=== PATIENT | male | born 1955 | race Caucasian/White ===

== ENCOUNTER 2024-05-05 09:29 | Outpatient (CLI) | payer OTHER, SELFPAY ==
--- OUTSIDE RECORDS SUMMARY | 2024-05-06 08:32 | XMS_ITS | Referral Summary ---
Author Organization [facility] Address [address] [place] [address]. [place] [address] Care Team Providers Care Billet Sawyer Name Role Phone Berenice Olea Primary Care Provider Social History Tobacco Use Types Packs/Day Years Used Date Smoking Tobacco: Never Assessed Adolescent Education Answer Date Record ed Getting School Help Needed Not on file 07/03 Sex and Gender Information Value Date Recorded Sex Assigned at Not on file Gender Identity Not on file Sexual Orientation Not on file Plan of Treatment Not on file Procedures Procedure Name Priority Date/Time Associated Diagnosis Comments COLONOSCOPY Routine 04/08/2008 8:50 AM CDT from Last 3 Months or Most Recently Relevant to Health Maintenance Results * COLONOSCOPY (04/08/2008 8:50 AM CDT) COLONOSCOPY Endoscopy Patient Name: Patrice Johnson ?Gender: M ? Procedure Date: 04/08/2008 8:50 AM ? Date of : 1955 ?Age: 53 ? Admit Type: Outpatient ? Attending MD: Aristeo Feng MD ? Procedure: ? Colonoscopy Indications: ? Average risk screening for malignant neoplasm in the ? colon Providers: ? Aristeo Feng MD Referring MD: ?Ramon Cook MD Medicines: ? Fentanyl 100 micrograms IV, Midazolam 2 mg IV, Atropine ? 0.6 mg IV Complications: ? No immediate complications Procedure: ? - Prior to the procedure, a History and Physical was ? performed, and patient medication allergies were ? reviewed. The patient is competent. The risks and ? benefits of the procedure and the sedation options and ? risks were discussed with the patient. All questions ? were answered and informed consent was obtained. Patient ? identification and proposed procedure were verified by ? the physician in the procedure room. Mental Status ? Examination: alert and oriented. Airway Examination: ? normal oropharyngeal airway and neck mobility. ? Respiratory Examination: clear to auscultation. CV ? Examination: normal. ASA Grade Assessment: I - A normal, ? healthy patient. After reviewing the risks and benefits, ? the patient was deemed in satisfactory condition to ? undergo the procedure. The anesthesia plan was to use ? moderate sedation / analgesia (conscious sedation). ? Immediately prior to administration of medications, the ? patient was re-assessed for adequacy to receive ? sedatives. The heart rate, respiratory rate, oxygen ? saturations, blood pressure, adequacy of pulmonary ? ventilation, and response to care were monitored ? throughout the procedure. The physical status of the ? patient was re-assessed after the procedure. ? After obtaining informed consent, the colonoscope was ? passed under direct vision. Throughout the procedure, ? the patient's blood pressure, pulse, and oxygen ? saturations were monitored continuously. The [id number]-Q180AL ? #[id number] was introduced through the anus and advanced to ? the cecum, identified by appendiceal orifice & IC valve. ? The colonoscopy was performed without difficulty. The ? patient tolerated the procedure well. The quality of the ? prep was good. ? Findings: ? The digital rectal exam was normal. The rectum, sigmoid colon, ? descending colon, splenic flexure, transverse colon, hepatic flexure, ? ascending colon, cecum and ileocecal valve appeared normal. The ? retroflexed view of the anal verge was normal and showed no anal or ? rectal abnormalities. ? Impression: ?- The rectum, sigmoid colon, descending colon, splenic ? flexure, transverse colon, hepatic flexure, ascending ? colon, cecum and ileocecal valve are normal. Recommendation: ?- Discharge patient to home (ambulatory). ? - Collect Hemoccults on three spontaneously passed ? stools annually. ? - Flexible Sigmoidoscopy in 3 years. ? - Return to primary care physician PRN. ? Erin Feng M.D Aristeo Feng MD Signed Date: 04/08/2008 9:38 AM Number of Addenda: 0 I was physically present for the entire viewing portion of the exam. Note initiated on 04/08/2008 8:49 AM RADIOLOGY RESULTS COLONOSCOPY RADIOLOG Y RESULTS 04/08/2008 8:50 AM CDT Ramon Cook MD PROCEDURES RADIOLOGY RESULTS from Last 3 Months or Most Recently Relevant to Health Maintenance Care Teams Billet Sawyer Relationship Specialty Start Date End Date Berenice Olea [facility] [address] [place] [address] PCP - General Nurse Practitioner 12/15/16
--- OUTSIDE RECORDS SUMMARY | 2024-05-06 08:32 | XMS_ITS | Encounter Summary ---
Author Organization [facility] Address [address], [place] [address] Care Team Providers Care Leacher Name Role Phone Michael Galarza PA-C Primary Care Provider [phone] Encounter Details Date Type Department Care Team (Late st Contact Info) Description 04/16/2019 Consent for Procedure/Treatme nt [facility] INFORMED CONSENT RECORD Social History Tobacco Use Types Packs/Day Years Used Date Smoking Tobacco: Never Smokeless Tobacco: Never Alcohol Use Standard Drinks/Week Comments Yes 0 (1 standard drink = 0.6 oz pur e alcohol) 4-5 glasses of wine/day Sex and Gender Information Value Date Recorded Sex Assigned at Not on file Gender Identity Not on file Sexual Orientation Not on file documented as of this encounter Plan of Treatment Not on file documented as of this encounter Visit Diagnoses Not on filedocumented in this encounter Care Teams Leacher Relationship Specialty Start Date End Date Michael Galarza PA-C [address] [place] [address] PCP - General Physician Forensic Nurse 03/10/21 documented as of this encounter
--- OUTSIDE RECORDS SUMMARY | 2024-05-06 08:32 | XMS_ITS | Continuity of Care Document ---
Author Organization [facility] Address [address] [place] [address] Care Team Providers Care Corn Lab Technician Name Role Phone BONI KESSLER Primary Care Provider [facility] Primary Care Provider BONI KESSLER Referring Provider Assessment No assessment recorded. Plan of Treatment Reminders Order Date Submit Date Provider Last Modified By Organization Details Last Modified Time Details Appointments None recorded . Lab PSA, total, serum or plasma 024 04/17/[address] [facility], [address], [place], [address], 16:14:00 Referral None recorded . Procedures None recorded . Surgeries None recorded . Imaging None recorded . Medication Orders None recorded . Patient TargetsNo targets recorded. Patient InstructionsNo instructions recorded. Reason for Referral None Reported. Problems Name Status Onset Date Resolution Date Notes Provider Name and Address Organization Details Recorded Time Prostate specific antigen above reference range Active 09/01/20 20 Juanjose Edwards MD [address] [place] [address],[address], [address], [facility] 09/01/2020 18:10:19 Primary erectile dysfunction Active 03/10/20 21 Juanjose Edwards MD [address] [place] [address],[address], [address], [facility] 03/10/2021 11:59:25 Benign prostatic hyperplasia with outflow obstruction Active 05/25/20 22 Juanjose Edwards MD [address] [place] [address],[address], [address], [facility] 05/25/2022 16:07:56 Urgent desire to urinate Active 05/25/20 22 Juanjose Edwards MD [address], [place], [address], [facility] 05/25/2022 16:07:57 Problem Notes None recorded. Procedures Surgical History Date Name Laterality Status Provider Name and Address Organization Details Recorded Time 04/24/20 24 Bladder Scan completed Jenifer Latif null, [facility] 04/24/2024 16:27:55 04/17/20 24 Blood Draw/ICE SCRAPER/PSA RESULTS completed Tamra Chacon null, [facility] 04/17/2024 15:02:35 04/26/20 23 Bladder Scan completed Jenifer Latif null, [facility] 04/26/2023 15:24:43 04/19/20 23 Blood Draw/ICE SCRAPER/PSA RESULTS completed Guille Alexandre null, [facility] 04/19/2023 10:35:26 10/09/19 23 Prostate Biopsy Procedure completed Raghav Mejía MD [address], [place], [address], [facility] 10/05/2022 18:17:42 10/09/19 23 URONAV completed Raghav Mejía MD [address], [place], [address], [facility] 10/05/2022 18:17:45 10/09/19 23 Rocephin/Ceftri axone completed Tamra Chacon null, [facility] 10/09/2022 14:22:00 05/25/20 22 Bladder Scan completed Alla Pimentel null, [facility] 05/25/2022 15:55:06 05/18/20 22 Blood Draw/ICE SCRAPER/PSA RESULTS completed Karina Campoverde null, [facility] 05/18/2022 16:39:48 03/10/20 21 Bladder Scan completed Alla Pimentel null, [facility] 03/10/2021 11:49:38 09/02/20 20 Prostate Biopsy Procedure completed Juanjose Edwards MD [address], [place], [address], [facility] 09/02/2020 14:22:34 09/02/20 20 Gentamicin Injection completed Alla Pimentel donna, [facility] 09/02/2020 13:44:12 05/16/20 20 Diagnostic colonoscopy completed Not Available Health Note 05/25/2022 00:20:52 05/08/20 20 Colonoscopy thru stoma spx completed Not Available Health Note 05/25/2022 00:20:52 Hernia repair w/mesh completed Not Available Health Note 05/25/2022 00:20:52 Imaging Results None recorded. Procedure Notes None recorded. Medical Equipment None Reported. Allergies Allergen ID Allergen Name Allergen Category Reaction Reaction Severity Criticality Documentation Date Start Date Code Code System Note Provider Name and Address Organization Details Recorded Time 950194 latex environme nt,medica tion itching Not available Not available 04/24/2023 78670 91 RxNorm Not Available Health Note 14:46:06 Medications Name Sig Start Date Stop Date Status Note LastModified by Organization Details LastModified Time valacyclo vir 1 gram tablet TK 1 T PO D 05/25 completed HN: Patient reports no longer taking Not Available Not Available Not Available triamcino lone acetonide 0.1 % topical cream APPLY TOPICALL Y TWICE A DAY NEEDED 05/25 completed HN: Patient reports no longer taking Not Available Not Available Not Available ceftriaxo ne 1 gram solution for injection Take 1 g by injectio n route. 04/24 completed HN: Patient reports no longer taking HN: Patient reports no longer taking Not Available Not Available Not Available triamcino lone acetonide 0.1 % topical ointment APPLY TOPICALL Y TO BODY RASH TWICE DAILY ON TOP OF VANICREA M MOISTURI ZER NEEDED active Not Available Not Available No t Available lisinopri l 20 mg-hydroc hlorothia zide 25 mg tablet TAKE 1 TABLET BY MOUTH DAILY active Not Available Not Available No t Available clobetaso l 0.05 % topical ointment APPLY TO RASH ON AFFECTED AREAS ON TRUNK TWICE DAILY ON TOP OF VANICREA M FOR MORE SEVERE BODY RASH 04/24 completed HN: Patient reports no longer taking Not Available Not Available Not Available levofloxa eleazar 500 mg tablet Take 1 tablet by mouth on the morning of the procedur e. 04/24 completed HN: Patient reports no longer taking Not Available Not Available Not Available gentamici n 40 mg/mL injection solution 160mg prior to procedur e 2019 active Not Available Not Available Not Avai lable hydrocort isone 2.5 % topical ointment APPLY 1-2 TIMES DAILY NEEDED FOR FACIAL RASH/ITC SIRI ON TOP OF VANICREA M NEEDED active Not Available Not Available No t Available Adult Low Dose Aspirin 81 mg tablet,de layed release Take 1 tablet every day by oral route. active Not Available Not Available No t Available sildenafi l (pulmonar y hypertens ion) 20 mg tablet TAKE 1 TO 5 TABLETS BY MOUTH 1 HOUR BEFORE SEXUAL ACTIVITY DIRECTED NEEDED active Not Available Not Available No t Available Vitamin D3 active Not Available Not Available Not Available Vitals None Recorded Social History Question Answer Notes LastModified by Organizat ion Details LastModified Time Tobacco Smoking Status Never Smoker Not Available Health Note 04/24/2023 14:46:07 What Is Your Level Of Alcohol Consumption? Moderate [email or web address] Information not available 04/24/2023 What Is Your Level Of Caffeine Consumption? Moderate [email or web address] Information not available 04/24/2023 How Much Tobacco Do You Chew? None [email or web address] Information not available 04/24/2023 Do You Or Have You Ever Used E-cigarettes Or Vape? Never Used Electronic Cigarettes [email or web address] Information not available 04/24/2023 Recreational Drug Use No [email or web address] Information not available 03/08/2021 What Was The Date Of Your Most Recent Tobacco Screening? 04/24/2024 [email or web address] Information not available 04/24/2024 Have You Ever Been Counseled For Unhealthy Alcohol Use? No Information not available 04/24/2024 What Is Your Relationship Status? [email or web address] Information not available 04/24/2023 Are You Sexually Active? Yes [email or web address] Information not available 04/24/2023 Do You Or Have You Ever Used Smokeless Tobacco? Never Used Smokeless Tobacco [email or web address] Information not available 04/24/2023 Do You Use Any Illicit Or Recreational Drugs? No [email or web address] Information not available 04/24/2023 How Many Days In The Past Year Have You Consumed 5 Or More Drinks? 3 [email or web address] Information no t available 04/24/2023 Sex: Unknown Functional Status None recorded. Mental Status None recorded. Family History Relationship Description Onset Age of this Age Resolved Age Notes Unspecified Relation Family history of malignant neoplasm Medical History Condition Response High Blood Pressure N Kidney Stones N Depression N Lung Disease N GERD/Acid Reflux N Sexually Transmitted Infection N Cancer N High Cholesterol N Diabetes N Bleeding Disorder N Heart Disease N Immunizations Vaccine Type Date Status Provider Name and Address Organization Details Recorded Time Influenza, split virus, quadrivalent, preservative [facility]07[facility] 15:47:52 influenza, unspecified formulation 06[facility]26/2021 [facility] 15:47:52 pneumococcal, unspecified formulation 05/18/2020 [facility] 15:47:52 SARS-COV-2 (COVID-19) vaccine, UNSPECIFIED 03/02/2022 [facility] 15:47:52 Influenza, high-dose, trivalent, PF 08/17/2014 [facility] 15:47:52 Tdap 11/16/2015 [facility] 15:47:52 COVID-19, mRNA, LNP-S, PF, 100 mcg/0.5mL dose or 50 mcg/0.25mL dose 10/13/2020 [facility] 15:47:52 Influenza, split virus, quadrivalent, PF 08/10/2015 [facility] 15:47:52 Influenza, split virus, quadrivalent, PF 09/27/2017 [facility] 15:47:52 pneumococcal polysaccharide PPV23 04/30/2020 [facility] 15:47:52 COVID-19, mRNA, LNP-S, PF, 100 mcg/0.5mL dose or 50 mcg/0.25mL dose 03/02/2022 completed Alla Pimentel null, [facility] 05/25/2022 15:47:52 zoster recombinant 01/24/2019 completed Alla Pimentel null, [facility] 05/25/2022 15:47:52 Influenza, split virus, quadrivalent, preservative 07/14/2019 completed Alla Pimentel null, [facility] 05/25/2022 15:47:52 COVID-19, mRNA, LNP-S, PF, 100 mcg/0.5mL dose or 50 mcg/0.25mL dose 09/15/2020 completed Alla Pimentel null, [facility] 05/25/2022 15:47:52 Influenza, split virus, quadrivalent, PF 09/19/2018 completed Alla thompson, [facility] 05/25/2022 15:47:52 Pneumococcal conjugate PCV 13 08/10/2015 completed Alla Pimentel null, [facility] 05/25/2022 15:47:52 zoster recombinant 10/14/2019 completed Alla thompson, [facility] 05/25/2022 15:47:52 Influenza, split virus, quadrivalent, preservative 06/09/2020 [facility] 15:47:52 Influenza, split virus, trivalent, preservative 09/26/2012 completed Alla Pimentel null, [facility] 05/25/2022 15:47:52 Tdap 02/27/2007 completed Alla Pimentel null, [facility] 05/25/2022 15:47:52 Novel [id number], all formulations 08/31/2009 completed Alla Pimentel null, [facility] 05/25/2022 15:47:52 Influenza, split virus, trivalent, PF 08/31/2014 completed Alla Pimentel null, [facility] 05/25/2022 15:47:52 Influenza, split virus, quadrivalent, PF 06/30/2021 completed Alla thompson, [facility] 05/25/2022 15:47:52 COVID-19, mRNA, LNP-S, PF, 100 mcg/0.5mL dose or 50 mcg/0.25mL dose 08/31/2021 completed Alla Pimentel null, [facility] 05/25/2022 15:47:52 pneumococcal, unspecified formulation 05/06/2020 completed Alla Pimentel null, [facility] 05/25/2022 15:47:52 influenza, unspecified formulation 06/01/2020 completed Alla Pimentel null, [facility] 05/25/2022 15:47:52 SARS-COV-2 (COVID-19) vaccine, UNSPECIFIED 10/13/2020 completed Alla thompson, [facility] 05/25/2022 15:47:52 SARS-COV-2 (COVID-19) vaccine, UNSPECIFIED 08/17/2022 completed Not Available Health Note 04/24/2023 14:46:14 pneumococcal, unspecified formulation 05/18/2021 completed Not Available Health Note 04/24/2023 14:46:14 influenza, unspecified formulation 05/18/2022 completed Not Available Health Note 04/24/2023 14:46:14 Past Encounters Encounter ID Performer Location Encounter Start Date Encounter Closed Date Diagnosis/Indication Diagnosis SNOMED-CT Code [id number] Tamra Chacon [address] [address] 04/17/2024 15:00:33 04/17/2024 15:03:18 Prostate specific antigen above reference range [id number] Health Concerns Section Related Observation LastModified by Organization Detai ls LastModified Time None Recorded Concern Status LastModified by Organization Details LastModified Time None Recorded Payers Encounter Date Sequence Insurance Name Policy Number Policy Bryan Covered Member ID Bryan Member ID Guarantor Name 04/17/2024 1 [employer] - OPEN ACCESS CHOICE (HMO) [id number] Vipul Johnson [id number] Vipul Johnson
--- OUTSIDE RECORDS SUMMARY | 2024-05-06 08:32 | XMS_ITS | Clinical Summary ---
Author Organization [facility] Address [address] [place] [address]. [place] [address] Care Team Providers Care Proposal Development Manager Name Role Phone Berenice Olea Primary Care Provider [phone] Social History Tobacco Use Types Packs/Day Years Used Date Smoking Tobacco: Never Assessed Adolescent Education Answer Date Record ed Getting School Help Needed Not on file 07/03 Sex and Gender Information Value Date Recorded Sex Assigned at Not on file Gender Identity Not on file Sexual Orientation Not on file Plan of Treatment Health Maintenance Due Date Last Done Comments ADVANCE CARE PLANNING 1955 ANNUAL REVIEW OF HM ORDERS [address] CT COLONOGRAPHY 1955 FIT 1955 FLEX SIG 1955 GLUCOSE 1955 sDNA (Cologuard) 1955 HEPATITIS C SCREENING 1975 LIPID 1997 RSV VACCINE ( & 60+) (1 - 1-dose 60+ series) 2017 FALL RISK ASSESSMENT 2022 MEDICARE ANNUAL WELLNESS VISIT 2022 COVID-19 Vaccine (2022- season) 2023 03/02/2022, 08/31/2021, 10/13/2020, Additional history exists PHQ-2 (once per calendar year) 2023 INFLUENZA VACCINE (#1) 2024 , 06/26/2021, 06/09/2020, Additional history exists Pneumococcal Vaccine: 65+ Years (3 of 3 - PPSV23 or PCV20) 05/18/2025 05/18/2020, 05/06/2020, 04/30/2020, Additional history exists DTAP/TDAP/TD IMMUNIZATION (3 - Td or Tdap) 11/15/2025 11/16/2015, 02/27/2007 COLONOSCOPY 05/16/2030 05/16/2020, 04/18, 04/08/2008 COLORECTAL CANCER SCREENING 05/16/2030 ZOSTER IMMUNIZATION Completed 10/14/2019, 9 HPV IMMUNIZATION Aged Out No longer e ligible based on patient's age to complete this topic IPV IMMUNIZATION Aged Out No longer e ligible based on patient's age to complete this topic MENINGITIS IMMUNIZATION Aged Out No l onger eligible based on patient's age to complete this topic RSV MONOCLONAL ANTIBODY Aged Out No l onger eligible based on patient's age to complete this topic Procedures Procedure Name Priority Date/Time Associated Diagnosis [...] saturations were monitored continuously. The PCF-Q180AL ? #[id number] was introduced through the anus and advanced [...] Return to primary care physician PRN. ? rEin Feng M.D Aristeo Feng MD Signed Date: 04/08/2008 9:38 AM Number of Addenda: 0 I was physically present for the entire viewing portion of the exam. Note initiated on 04/08/2008 8:49 AM RADIOLOGY RESULTS COLONOSCOPY RADIOLOG Y RESULTS 04/08/2008 8:50 AM CDT Ramon Cook MD PROCEDURES RADIOLOGY RESULTS from Last 3 Months or Most Recently Relevant to Health Maintenance Care Teams Proposal Development Manager Relationship Specialty Start Date End Date Berenice Olea [facility] [address] [place] [address] PCP - General Nurse Practitioner 12/15/16
--- OUTSIDE RECORDS SUMMARY | 2024-05-06 08:32 | XMS_ITS | Encounter Summary ---
Author Organization [facility] Address [address], [place] [address] Care Team Providers Care Truck And Transport Mechanic Name Role Phone Michael Galarza PA-C Primary Care Provider [phone] Encounter Details Date Type Department Care Team (Latest Contact Info) Description 01/24/2019 Correspondence None No Primary/Referring, Phy VACCINE PAW Social History Tobacco Use Types Packs/Day Years Used Date Smoking Tobacco: Never Smokeless Tobacco: Never Alcohol Use Standard Drinks/Week Comments Yes 0 (1 standard drink = 0.6 oz pur e alcohol) Sex and Gender Information Value Date Recorded Sex Assigned at Not on file Gender Identity Not on file Sexual Orientation Not on file documented as of this encounter Plan of Treatment Not on file documented as of this encounter Visit Diagnoses Not on filedocumented in this encounter Care Teams Truck And Transport Mechanic Relationship Specialty Start Date End Date Michael Galarza PA-C [address] [place] [address] PCP - General Physician Web Services Manager 03/10/21 documented as of this encounter
--- OUTSIDE RECORDS SUMMARY | 2024-05-06 08:32 | XMS_ITS | Clinical Summary ---
[facility] Organization [facility] Address [address] [place] [address] Care Team Providers Care Potato Bucker Name Role Phone Michael Galarza PA-C Primary Care Provider [phone] Source Comments You are receiving this document as you are listed as the primary care provider,follow-up provider, or the patient has been referred to you for consultation.This is in compliance with the Medicare and[facility] EHR Incentive Program,which states Providers who transition their patient to another setting of careor provider of care or refers their patient to another provider of care shouldprovide summary care record for each transition of care or referral. [facility] Allergies No known active allergies Medications Medication Sig Dispensed Refills Start Date End Date Status aspirin 81 MG tablet Take 81 mg by mouth every Sunday, Sunday & Sunday. Active valACYclovir (VALTREX) 1 g tabletIndications:He rpes gladiatorum Take 1 Tablet by mouth daily. 90 Tablet 3 10/14/2019 Active sildenafil (REVATIO) 20 MG tabletIndications:Er ectile dysfunction, unspecified erectile dysfunction type Take 1-4 Tablets by mouth daily as needed for Other (erectile dysfunction) for up to 30 doses. 30 Tablet 10/14/2019 Active Additional Information Patient not taking.Reported on 04/30/2020 lisinopril-hydroCHLO ROthiazide (PRINZIDE) 20-25 MG tabletIndications:Es sential hypertension (HRC) Take 0.5 Tablets by mouth daily. 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 Non-recurrent bilateral ingu inal hernia without obstruction or gangrene 02/27/2019 Overview (02/27/2019): Added automatically from request for surgery [id number] Solitary kidney, acquired 12/03/2018 Immunizations Name Administration Dates Next Due Flu Vac (3+ yrs) 09/26/2012 Flu Vac Preserv Free (3+yrs) 08/31/2014 Fluzone Qiv Multidose Vial 0.25 (6-35 Mos) 07/14 [id number] 08/31/2009 Influenza IIV3 (Trivalent) F luzone Highdose, 65+ Yrs (95109) 08/17/2014 Influenza IIV4 (Quadrivalent) 0.5mL (20431) 11/2018,09/27/2017,08/10/2015 PCV13 (Prevnar) 08/10/2015 PPSV23 (Pneumovax) 04/30/2020 Tdap 11/16/2015,02/27/2007 Zoster RZV (Shingrix) 10/14/2019,01/24/2019 Social History Tobacco Use Types Packs/Day Years Used Date Smoking Tobacco: Never Smokeless Tobacco: Never Alcohol Use Standard Drinks/Week Comments Yes 21 (1 standard drink = 0.6 oz pu re alcohol) Sex and Gender Information Value Date Recorded Sex Assigned at Not on file Gender Identity Not on file Sexual Orientation Not on file Last Filed Vital Signs Vital Sign Reading Time Taken Comments Blood Pressure 120/89 04/30/2020 10:21 AM CDT Pulse 67 04/30/2020 10:21 AM CDT Temperature 36.8 ??C (98.3 ??F) 05/01/2019 9:27 AM CD T Respiratory Rate 16 04/16/2019 9:40 AM CDT Oxygen Saturation 94% 04/16/2019 9:40 AM CDT Inhaled Oxygen Concentration - - Weight 84.8 kg (187 lb) 04/30/2020 10:21 AM CDT Height 172.7 cm (5' 8) 04/30/2020 10:21 AM CDT Body Mass Index 28.43 04/30/2020 10:21 AM CDT Plan of Treatment Health Maintenance Due Date Last Done Comments Hep C Screening (Preventive Services) 1955 MTM Covered 1955 Adult Preventive Visit 04/30/2021 04/30/2020 Med Monitoring Renal (Creatinine) 04/30/2021 04/30/2020, 04/07/2019, 09/17/2018 (Completed) Med Monitoring Renal (Potassium) 04/30/2021 04/30/2020, 04/07/2019, 07/14/1996 Med Monitoring Renal (Sodium) 04/30/2021 04/30/2020, 04/07/2019 PSA Screening Discussion 04/30/2021 04/30/2020, 03/18 COVID-19 Vaccine (3 - 2022- season) 2023 10/13/2020, 09/15/2020 Influenza (#1) 2024 06/09/2020, 06/18, 09/19/2018, Additional history exists Cholesterol 04/30/2025 04/30/2020 Pneumococcal 65+ Yrs (3 - PPSV23 or PCV20) 04/30/2025 04/30/2020, 08/10/2015 DTaP/Tdap/Td (3 - Tdap) 11/15/2025 11/16/2015, 02/27 Colonoscopy 05/07/2030 05/07/2020, 04/18 (Completed), 09/17/2009 (Completed) Zoster/Shingles Completed 10/14/2019, 01/24/2019 HepA Aged Out No longer eligi ble based on patient's age to complete this topic HepB Aged Out No longer eligi ble based on patient's age to complete this topic Hib Aged Out No longer eligi ble based on patient's age to complete this topic IPV (Polio) Aged Out No longer eligi ble based on patient's age to complete this topic MCV4 Aged Out No longer eligi ble based on patient's age to complete this topic Medical Devices Implanted Type Area Parts Processor Device Identifier Shelf Expiration Date Model / Serial / Lot Mesh Ultrapro Oval - [id number] Implanted:Qty: 1 on 04/16/2019 by Marky Bar MD at [facility] DEVICE Right: INGUINAL J 12/15/2020 UHSOV / / [id number] Mesh Ultrapro Oval - [id number] Implanted:Qty: 1 on 04/16/2019 by Marky Bar MD at [facility] DEVICE Left: INGUINAL J 12/15/2020 UHSOV / / [id number] Procedures Procedure Name Priority Date/Time Associated Diagnosis Comments COLONOSCOPY S 05/07/2020 POTASSIUM Routine 04/30/2020 10:42 AM CDT Encounter for long-term (current) use of other medications SODIUM Routine 04/30/2020 10:42 AM CDT Encounter for long-term (current) use of other medications PROSTATIC SPECIFIC ANTIGEN(SCREEN) Routine 04/30/2020 10:42 AM CDT Screening for prostate cancer CREATININE / GFR Routine 04/30/2020 10:4 2 AM CDT Encounter for long-term (current) use of other medications LIPID PANEL & DIRECT LDL (IF NEEDED) Routine 04/30/2020 10:42 AM CDT Lipid screening from Last 3 Months or Most Recently Relevant to Health Maintenance Results * COLONOSCOPY S (05/07/2020) Felipe Dukes MD DUMMY/OTHER/AR * Lipid Panel and Direct LDL(If Needed) (04/30/2020 10:42 AM CDT) Cholesterol 188 0 - 199 mg/dL 04/30/2020 12:59 PM CDT [facility] Triglyceride 92 <=149 mg/dL 04/30/2020 12:59 PM CDT [facility] HDL Cholesterol 48 >=40 mg/dL 04/30/2020 12:59 PM CDT [facility] LDL, Calculated 122 <130 mg/dL 04/30/2020 12:59 PM CDT [facility] Non HDL Chol, Calculated 140 mg/dL 04/30/2020 12:59 PM CDT [facility] Cholesterol/HDL Ratio 3.9 04/30/2020 12:59 PM CDT [facility] Hours Fasting 12 04/30/2020 12:59 PM CDT [facility] Blood Venipuncture / Unknown 04/30/2020 10:42 AM CDT 04/30/2020 11:17 AM CDT Felipe Dukes MD LAB_1 Performing Organization Address [facility]/ZIP Co de Phone Number [facility] [address] [phone] [facility] [address] [place] [address], [facility] [phone] * (ABNORMAL) CREATININE / GFR (04/30/2020 10:42 AM CDT) Creatinine 1.48(H) 0.73 - 1.18 mg/dL 04/30/2020 12:59 PM CDT [facility] GFR, Estimated 50(L) >60 mL/min/1. 73m2 04/30/2020 12:59 PM CDT [facility] Blood Venipuncture / Unknown 04/30/2020 10:42 AM CDT 04/30/2020 11:17 AM CDT Narrative [facility] - 04/30/2020 12:59 PM CDT The National Kidney Disease Education Program suggests measuring Cystatin C in patients with eGFRcrea of 45 to 59 ml/min/1.73^2 who do not have other markers of kidney damage (i.e. elevated urine Albumin/Creatinine Ratio or a prior Cystatin C confirming the presence of chronic kidney disease). Felipe Dukes MD LAB_1 Performing Organization Address [facility]/ZIP Co de Phone Number [facility] [address] [phone] * (ABNORMAL) Prostatic Specific Antigen (Screen) (04/30/2020 10:42 AM CDT) Prostatic Specific Antigen 4.9(H) 0.0 - 4.0 ng/mL 04/30/2020 1:14 PM CDT [facility] Blood Venipuncture / Unknown 04/30/2020 10:42 AM CDT 04/30/2020 11:17 AM CDT Narrative [facility] - 04/30/2020 1:14 PM CDT The Mancia PSA Chemiluminescent immunoassay is used. Results obtained with different test methods or kits cannot be used interchangeably. Felipe Dukes MD LAB_1 Performing Organization Address [facility] Co de Phone Number [facility] [address] [place] [address], [facility] [phone] * SODIUM (04/30/2020 10:42 AM CDT) Sodium 139 136 - 145 mmol/L 04/30/2020 12:59 PM CDT [facility] Blood Venipuncture / Unknown 04/30/2020 10:42 AM CDT 04/30/2020 11:17 AM CDT Felipe Dukes MD LAB_1 Performing Organization Address [facility] de Phone Number [facility] [address] [place] [address], [facility] [phone] * POTASSIUM (04/30/2020 10:42 AM CDT) Potassium 5.1 3.5 - 5.1 mmol/L 04/30/2020 12:59 PM CDT [facility] Blood Venipuncture / Unknown 04/30/2020 10:42 AM CDT 04/30/2020 11:17 AM CDT Felipe Dukes MD LAB_1 Performing Organization Address [facility] de Phone Number [facility] [address] [place] [address], [facility] [phone] from Last 3 Months or Most Recently Relevant to Health Maintenance Advance Directives * Full Code (Latest Code Status on File) Date Activated Date Inactivated Comments 04/16/2019 5:49 AM 04/16/2019 12:01 PM Care Teams Potato Bucker Relationship Specialty Start Date End Date Michael Galarza PA-C [address] [place] [address] PCP - General Physician Automatic Centrifugal Station Operator 03/10/21
== END 2024-05-05 09:30 | disposition home or self-care (01) ==
LOC: NFLDREF 05-06 08:29
PROVIDERS: PCP Emergency Medicine; Referring Provider Emergency Medicine; Visit Provider Emergency Medicine
DX: E78.2 Mixed hyperlipidemia (principal); E78.5 Hyperlipidemia, unspecified; I10 Essential (primary) hypertension; Z13.1 Encounter for screening for diabetes mellitus
CPT/HCPCS: 80053; 80061

== ENCOUNTER 2025-05-19 10:04 | Outpatient (CLI) | payer BC, SELFPAY | END 2025-05-19 10:05 | disposition home or self-care (01) | PROVIDERS: PCP Family Medicine; Visit Provider Family Medicine | DX: E78.2 Mixed hyperlipidemia (principal); I10 Essential (primary) hypertension; Z79.899 Other long term (current) drug therapy | CPT/HCPCS: 80048; 80061; 82607 ==

== ENCOUNTER 2025-06-12 10:00 | Outpatient (RCR) | payer BC, SELFPAY ==
--- NOTE | 2025-05-22 11:47 | PT.OPE ---
PT [place] Outpatient Eval PT [facility] Outpatient Eval Start: 05/22/25 08:32 Freq: Status: Active Protocol: Document 05/22/25 11:46 CJT (Rec: 05/22/25 11:47 CJT [id number]) E-signed By Milan Paez PT Physical Therapy Outpatient Evaluation Insurance Information Recert Due Date 08/20/25 Insurance Name Medicare B Medical Diagnosis M25.511 - R shoulder pain Treating Diagnosis M25.511 - R shoulder pain Referring MD Gee Subjective Preferred Name Patrice Salter Pt presents with complaints of R shoulder pain. Pain began after lifting weights on 10/10/23. Was doing press and had some significant soreness in the R shoulder following. Gave it some time to heal but every time he tries to lift overhead it can become quite painful. Pain is at the back of his upper R arm and posterior shoulder. Sleeping on his R shoulder makes it quite sore. This is his preferred sleeping position. Pt is worried about making this injury worse if he continues to exercise. Pts goal is to be able to continue to perform resistance exercises without exacerbating symptoms. 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 Precautions Therapy Limitations/ Not Limited Systems Review Objective Other/Pertinent Cervical ROM Objective Extension - 40 Flexion - 50 R/L Side Bend - 31/39 R/L Rotation - 77/67 R Shoulder AROM Flexion/Abduction/IR/ER - 165/165/T6/70 *pt notes pain with holding arm at 90 degrees abduction L Shoulder AROM Flexion/Abduction/IR/ER - 165/165/T4/70 R Shoulder Strength Flexion - 5/5 MMT Abduction - 4+/5 MMT IR (neutral) - 5/5 MMT IR (90) - 5/5 MMT ER (neutral) - 5/5 MMT ER (90) - 4+/5 MMT Empty Can - 4+/5 MMT L Shoulder Strength Flexion - 5/5 MMT Abduction - 5/5 MMT IR (neutral) - 5/5 MMT IR (90) - 5/5 MMT ER (neutral) - 4+/5 MMT ER (90) - 4+/5 MMT Empty Can - 5/5 MMT Palpation: pt reports tenderness/pain with palpation to R infraspinatus, teres minor, and posterior deltoid with spasm noted Posture: forward rounding of shoulders, forward head position, significant thoracic kyphosis with lumbar lordosis in sitting and standing Special Testing [place]'s: pain in both testing positions Crossover: negative, feels a stretch in posterior shoulder Rula: positive R Whipple: negative Neers: negative Speeds: positive Assessment Assessment/ Patrice is a very pleasant 70 year old male who presents Impression to our clinic for evaluation and treatment of R shoulder pain. Pts AROM and strength of R shoulder is actually quite good. He does have a significant muscle spasm in his posterior deltoid which is likely contributing to his pain when he externally rotates his arm when in abduction. I do think Patrice will see improvement in his symptoms with gentle stretching and massage to this muscle group. If pts symptoms remain unchanged after 3-4 weeks of consistent exercise I would recommend referral for MRI to rule out RTC tear. The nature of the pts condition was explained and all questions were answered to the pts satisfaction. Skilled PT services are medically necessary to address deficits and return patient to highest level of function. Recommend physical therapy sessions every other week for 4-6 weeks. Pt agrees with this plan. Printout of HEP was given for I completion and pt gives verbal understanding of each exercise. Primary Functional Lifting overhead, laying on R shoulder Limitations Plan of Care Rehabilitation Good Potential Physical Therapy STG - To be completed in 2-3 weeks: Goals 1. Pt will report reduction in shoulder pain by factor of 2 so that they may sleep without waking due to pain while shifting position in the night. LTG - To be completed in 4-6 weeks: 1. Pt to be I with HEP so that they may I manage progression of symptoms. 2. Pt will report ability to lay on R shoulder in bed without increase in pain so that they may sleep in preferred position to achieve better night's sleep. 3. Pt will demo full and pain free shoulder ROM and strength so that they may return to recreational exercise with their friends. 4. Pt will demo ability to press at least 15# overhead for at least 8 repetitions without pain so that he may confidently return to performance of his preferred exercises at the gym to improve his overall health and fitness. Treatment Plan/ Electrical Stimulation,Heat,Joint Mobilization,Manual Direct Interventions Therapy,Neuromuscular Re-ed,Self-Care/Home Management, Therapeutic Activities,Therapeutic Exercises,Ultrasound Frequency/Duration every other week for 4-6 weeks Patient Will Be Completion of LTG(s),Skills Plateau,Independent w/HEP, Discharged From Independently Progressing Therapy Evaluation Billing Untimed Code 43 Treatment Minutes PT Eval No Charge No Complexity Low Certification Information Initial 05/22/25 Certification Date Ending Certification 08/20/25 Date Provider Signature Yes Required Provider Signature POC & Medical Necessity Shows Agreement With Physician NPI Number Write NPI# Here Physician Comment/ : Change Physician Signature Please Sign/Date Here & Date Requested
== END 2025-08-25 09:14 | disposition home or self-care (01) ==
PROVIDERS: PCP Family Medicine; Visit Provider Family Medicine
DX: M12.811 Other specific arthropathies, not elsewhere classified, right shoulder (principal); M75.101 Unspecified rotator cuff tear or rupture of right shoulder, not specified as traumatic; Z51.89 Encounter for other specified aftercare
CPT/HCPCS: 97110; 97140; 97161